=== PATIENT | female | born 1995 | race African-American/Black ===

== ENCOUNTER 2020-06-16 08:06 | Emergency (ER) | payer OTHER ==
[~2020-06-16] VITALS: Ht 157.5 cm; Wt 62.6 kg
[2020-06-16] MEDS ORDERED: INTESTINEX680 M1 PO (09:10)
[2020-06-16] MEDS ORDERED: FLUCONAZOLE150 MG PO (09:10)
[2020-06-16] MEDS ORDERED: FLAGYL500MG PO (09:10)
[2020-06-16] MEDS ORDERED: KETOCONAZOLE15 GM TOP (09:10)
== END 2020-06-16 09:17 | disposition home or self-care (01) ==
LOC: ER 08:06
DX: B37.3 Candidiasis of vulva and vagina (principal); N76.0 Acute vaginitis; B35.4 Tinea corporis

== ENCOUNTER → 2021-03-11 | Emergency (ER) | payer OTHER ==
[~2021-03-11] VITALS: Ht 157.5 cm; Wt 56.2 kg
[~2021-03-11] MED LIST: FLAGYL500MG PO; FLUCONAZOLE150 MG PO; INTESTINEX680 M1 PO; KETOCONAZOLE15 GM TOP; PROAIR HFA8.5 GM
== END | disposition home or self-care (01) ==
LOC: ER 11:37
DX: J03.91 Acute recurrent tonsillitis, unspecified (principal)